=== PATIENT | female | born 1950 | race Caucasian/White ===

== ENCOUNTER 2017-09-11 08:23 | Day surgery (SDC) | payer MEDICARE, OTHER ==
[~2017-09-11] VITALS: Ht 165.1 cm; Wt 97.5 kg
[~2017-09-11 08:23] MED LIST: ATOR1TAB19 PO; DONN1TAB PO; LEVO100T5 PO; LIDOCAINE 2% INJ 100 MG/5 ML SDV (FOR ANES.) As Ordered ONE; OMEP20CA3 PO; PROPOFOL 200 MG/20 ML VIAL As Ordered ONE
[2017-09-11] MEDS ORDERED: NS 1,000 ML IV ONE (09:00)
--- NOTE | 2017-09-11 10:47 | ROOR ---
Patient Name: Jessi Krishnamurthy Procedure Date: 09/11/2017 9:59 AM Date of : 1950 Age: 67 Room: [facility] Gender: Female Note Status: Finalized Procedure: Upper GI endoscopy Indications: Oropharyngeal phase dysphagia, Pharyngeal phase dysphagia Providers: Alcides LOPES MD Referring MD: Nay Robles MD Requesting Provider: Medicines: Monitored Anesthesia Care Complications: No immediate complications. Procedure: Pre-Anesthesia Assessment: - The heart rate, respiratory rate, oxygen saturations, blood pressure, adequacy of pulmonary ventilation, and response to care were monitored throughout the procedure. The Endoscope was introduced through the mouth, and advanced to the second part of duodenum. The upper GI endoscopy was accomplished without difficulty. The patient tolerated the procedure well. Findings: A web was found at the cricopharyngeus. The scope was withdrawn. Dilation was performed with a Atkinson dilator with no resistance at 46 Fr and mild resistance at 50 Fr. The dilation site was examined following endoscope reinsertion and showed complete resolution of luminal narrowing. The exam of the esophagus was otherwise normal. Multiple 5 to 10 mm pedunculated and sessile fundic gland polyps were found in the gastric fundus and in the gastric body. The polyp was removed with a cold snare. Polyp resection was incomplete, and the resected tissue was partially retrieved. The exam of the stomach was otherwise normal. The examined duodenum was normal. 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 Dilated (50F atkinson dilator). - Multiple fundic gland appearing polyps. Multiple polyps removed with cold snare for histology - Normal examined duodenum. Recommendation: - Observe patient's clinical course. - I anticipate no further need for intervention. - Continue present medications. - Telephone endoscopist for pathology results in 2 weeks. Alcides Lopes MD Alcides LOPES MD 09/11/2017 10:47:21 AM This report has been signed electronically. Number of Addenda: 0 Note Initiated On: 09/11/2017 9:59 AM Estimated Blood Loss: Estimated blood loss: none.
[2017-09-11 10:58] VITALS: BP 129/72
== END 2017-09-11 11:19 | disposition home or self-care (01) ==
LOC: M OPP 08:23
PROVIDERS: ATTEND Internal Medicine Gastroenterology
DX: R13.12 Dysphagia, oropharyngeal phase (principal); R13.13 Dysphagia, pharyngeal phase; K31.7 Polyp of stomach and duodenum; Q39.4 Esophageal web; E03.9 Hypothyroidism, unspecified; K44.9 Diaphragmatic hernia without obstruction or gangrene; K21.9 Gastro-esophageal reflux disease without esophagitis; E78.00 Pure hypercholesterolemia, unspecified; H40.9 Unspecified glaucoma; D68.9 Coagulation defect, unspecified; Z79.899 Other long term (current) drug therapy; Z88.0 Allergy status to penicillin; Z88.2 Allergy status to sulfonamides

== ENCOUNTER 2022-09-12 10:48 | Day surgery (SDC) | payer MEDICARE, OTHER ==
[~2022-09-12] VITALS: Ht 165.1 cm; Wt 92.1 kg
[~2022-09-12 10:48] MED LIST changes: +BIMA01SOL OU; -DONN1TAB PO; +DONN1TAB3 PO; +IBUP-1416 PO; +IBUP200C29 PO; -LIDOCAINE 2% INJ 100 MG/5 ML SDV (FOR ANES.) As Ordered ONE; +NS 1,000 ML IV ONE; +OMEP1CAP73 PO; -OMEP20CA3 PO; -PROPOFOL 200 MG/20 ML VIAL As Ordered ONE; +SYNT75TA PO; +[UNRECOGNIZED DRUG - OTHER] PO
[2022-09-12] MEDS ORDERED: LIDOCAINE 2% MDV 20ML VIAL As Ordered ONE (11:50)
[2022-09-12] MEDS ORDERED: propofoL 200 MG/20 ML VIAL As Ordered ONE ×2 (11:50→14:07)
[2022-09-12] MEDS ORDERED: fentaNYL 100 MCG/2 ML INJECTION As Ordered ONE (11:51)
[2022-09-12 14:30] VITALS: BP 132/60
== END 2022-09-12 14:40 | disposition home or self-care (01) ==
LOC: M OPP 10:48
PROVIDERS: ATTEND Internal Medicine Gastroenterology
DX: K31.7 Polyp of stomach and duodenum (principal); K22.2 Esophageal obstruction; Z79.1 Long term (current) use of non-steroidal anti-inflammatories (NSAID); Z79.899 Other long term (current) drug therapy; Z88.0 Allergy status to penicillin; Z88.2 Allergy status to sulfonamides; E78.00 Pure hypercholesterolemia, unspecified; E03.9 Hypothyroidism, unspecified; K44.9 Diaphragmatic hernia without obstruction or gangrene; Z85.858 Personal history of malignant neoplasm of other endocrine glands
CPT/HCPCS: 43251; 43450; 88305; J3010

== ENCOUNTER 2024-06-28 12:11 | Day surgery (SDC) | payer MEDICARE, OTHER ==
[~2024-06-28] VITALS: Ht 165.1 cm; Wt 88.0 kg
[~2024-06-28 12:11] MED LIST changes: +HYDR-3490 PO; +MECL-86 PO; +MULTTAB61 PO; -NS 1,000 ML IV ONE; +OMEP-173 PO; +PHEN-491 PO
[2024-06-28] MEDS: NS 1,000 ML IV ONE (13:22)
[2024-06-28] MEDS ORDERED: propofoL 200 MG/20 ML VIAL As Ordered ONE (15:22)
[2024-06-28] MEDS ORDERED: LIDOCAINE 2% 100MG/5ML SDV (FOR ANES.) As Ordered ONE (15:22)
[2024-06-28] MEDS ORDERED: dexmedeTOMIDine (4MCG/ML)200MCG/50ML BTL (PRECEDEX) As Ordered ONE (15:42)
[2024-06-28 15:46] VITALS: TEMP 97.2
[2024-06-28 16:06] VITALS: BP 108/54; O2SAT 96
== END 2024-06-28 16:16 | disposition home or self-care (01) ==
LOC: M OPP 12:11
PROVIDERS: ATTEND Internal Medicine Gastroenterology
DX: K22.2 Esophageal obstruction (principal); K31.7 Polyp of stomach and duodenum; R13.10 Dysphagia, unspecified; K58.9 Irritable bowel syndrome, unspecified; K21.9 Gastro-esophageal reflux disease without esophagitis; Z87.19 Personal history of other diseases of the digestive system; Z90.49 Acquired absence of other specified parts of digestive tract; R93.3 Abnormal findings on diagnostic imaging of other parts of digestive tract; Z85.828 Personal history of other malignant neoplasm of skin; I10 Essential (primary) hypertension; E03.9 Hypothyroidism, unspecified; E78.00 Pure hypercholesterolemia, unspecified; Z79.899 Other long term (current) drug therapy; Z79.890 Hormone replacement therapy; Z88.0 Allergy status to penicillin; Z88.2 Allergy status to sulfonamides; Z90.710 Acquired absence of both cervix and uterus

== ENCOUNTER → 2025-02-16 | Outpatient (CLI) | payer MEDICARE, OTHER | LOC: M CARPUL 08:09 | PROVIDERS: ATTEND Physician Assistant | DX: R01.1 Cardiac murmur, unspecified (principal) ==

== ENCOUNTER 2025-05-29 09:11 | Day surgery (SDC) | payer MEDICARE, OTHER ==
[~2025-05-29] VITALS: Ht 165.1 cm; Wt 87.0 kg
[~2025-05-29 09:11] MED LIST changes: +ECOT81TA5 PO; +LR 1,000 ML IV SCH
[2025-05-29] MEDS: FLURBIPROFEN 0.03% OPHTH SOLN 2.5 ML OS SCH (10:12)
[2025-05-29] MEDS: PHENYLEPHRINE 2.5% OPHTH SOL 2ML OS SCH (10:12)
[2025-05-29] MEDS: CYCLOPENTOLATE 1% OPHTH SOLN 2 ML BTL OS SCH (10:12)
[2025-05-29] MEDS: TETRACAINE 0.5% OPHTH SOLN 4ML OS SCH (10:12)
[2025-05-29] MEDS: LIDOCAINE 1% SDV 5 ML VIAL As Ordered ONE (11:39)
[2025-05-29] MEDS: CEFUROXIME 1 MG/0.1 ML INTRACAMERAL INJ As Ordered ONE (11:39)
[2025-05-29 12:06] VITALS: BP 150/63; TEMP 96.7; O2SAT 97
== END 2025-05-29 12:21 | disposition home or self-care (01) ==
LOC: M SDC 09:11
PROVIDERS: ATTEND Ophthalmology
DX: H25.812 Combined forms of age-related cataract, left eye (principal); H40.1121 Primary open-angle glaucoma, left eye, mild stage; Z88.0 Allergy status to penicillin; Z88.1 Allergy status to other antibiotic agents; Z88.2 Allergy status to sulfonamides; Z79.82 Long term (current) use of aspirin; Z79.899 Other long term (current) drug therapy; Z85.828 Personal history of other malignant neoplasm of skin; Z90.710 Acquired absence of both cervix and uterus
CPT/HCPCS: 66991; C1783; J0697; V2788

== ENCOUNTER 2025-06-19 10:32 | Day surgery (SDC) | payer MEDICARE, OTHER ==
[~2025-06-19] VITALS: Ht 165.1 cm; Wt 87.1 kg
[~2025-06-19 10:32] MED LIST changes: +CYCLOPENTOLATE 1% OPHTH SOLN 2 ML BTL OD SCH; +FLURBIPROFEN 0.03% OPHTH SOLN 2.5 ML OD SCH; +PHENYLEPHRINE 2.5% OPHTH SOL 2ML OD SCH; +TETRACAINE 0.5% OPHTH SOLN 4ML OD SCH
[2025-06-19] MEDS ORDERED: MIDAZOLAM INJ 2 MG/2 ML VIAL As Ordered ONE (12:22)
[2025-06-19] MEDS: LIDOCAINE 1% SDV 5 ML VIAL As Ordered ONE (13:43)
[2025-06-19] MEDS: CEFUROXIME 1 MG/0.1 ML INTRACAMERAL INJ As Ordered ONE (13:43)
[2025-06-19 14:10] VITALS: BP 15/74; TEMP 97.4; O2SAT 98
== END 2025-06-19 14:25 | disposition home or self-care (01) ==
LOC: M SDC 10:32
PROVIDERS: ATTEND Ophthalmology
DX: H25.11 Age-related nuclear cataract, right eye (principal); H40.1111 Primary open-angle glaucoma, right eye, mild stage; I10 Essential (primary) hypertension; E78.5 Hyperlipidemia, unspecified; E03.9 Hypothyroidism, unspecified; K44.9 Diaphragmatic hernia without obstruction or gangrene; K58.8 Other irritable bowel syndrome; K21.9 Gastro-esophageal reflux disease without esophagitis; Z79.82 Long term (current) use of aspirin; Z79.899 Other long term (current) drug therapy; Z88.0 Allergy status to penicillin; Z88.2 Allergy status to sulfonamides
CPT/HCPCS: 66991; C1783; J0697; J2250; J3010; V2788